=== PATIENT | female | born 1955 | race Caucasian/White ===

== ENCOUNTER 2023-03-16 15:07 | Emergency (ER) | payer OTHER, SELFPAY ==
[2023-03-16] VITALS (9 sets, daily range): BP systolic 125–163; BP diastolic 72–107; PULSE 66–79; RESP 18; TEMP 36.8; O2SAT 91–100; BMI 57.4
[2023-03-16 15:34] LABS: Add Manual Diff / Slide Review NO; Basophils Absolute Auto 0 /uL (0-100); Basophils Percent Auto 0.5 % (0-2); Eosinophils Absolute Auto 100 /uL (0-450); Eosinophils Percent Auto 1.1 % (2-4); Hematocrit 40.1 % (36-46); Hemoglobin 13.4 g/dL (12.0-16.0); Lymphocytes Absolute Auto 1200 /uL (1100-4500); Lymphocytes Percent Auto 21.5 % (25-40); Mean Corpuscular HGB Conc 33.4 % (30-36); Mean Corpuscular Hemoglobin 29.2 PG (26-34); Mean Corpuscular Volume 87.3 fL (80-100); Monocytes Absolute Auto 500 /uL (0-900); Neutrophils Absolute Auto 4000 /uL (1500-7000); Neutrophils Percent Auto 68.9 % (50-75); Platelet Count 293 X10^3/uL (150-400); Red Cell Distribution Width 13.1 % (11.6-14.8); White Blood Cell Count 5.7 X10^3/uL (4.5-11.0)
--- NOTE | 2023-03-16 15:35 | DI.CT.S_ITS ---
PROCEDURE: CT ABDOMEN PELVIS W CON INDICATIONS: Generalized abdominal pain TECHNIQUE: After the administration of intravenous contrast, axial sections acquired from the lung bases to the pubic symphysis. Coronal and sagittal reformats were performed. For radiation dose reduction, the following was used: automated exposure control, adjustment of mA and/or kV according to patient size. COMPARISON: None. FINDINGS: Lower thorax: The lung bases are clear. Heart size normal. No hiatal hernia. Liver: Normal in size and attenuation. No contour deformity present. 1.1 cm right hepatic cyst Biliary system: No calcified cholelithiasis or pericholecystic inflammation. No intra or extrahepatic bile duct dilatation. Pancreas: Unremarkable without mass or inflammation evident. Spleen: Normal in size and density. Adrenals: Normal morphology and density. Reproductive system: Unremarkable as visualized. Urinary system: Normal renal size and attenuation. 2.0 cm left renal cyst simple. No renal calculi, hydronephrosis, or solid mass present. Urinary bladder unremarkable. Gastrointestinal system: The bowel is unremarkable without evidence of bowel obstruction or inflammation. The stomach appears unremarkable. Multiple diverticula arise from the sigmoid colon without evidence of diverticulitis. Moderate fecal debris in the right and transverse colon Appendix: Normal appendix identified. No evidence of appendicitis. Peritoneal spaces: No mesenteric or retroperitoneal adenopathy. No free air. No free fluid. Vasculature: The IVC, aorta and iliac vasculature are unremarkable. Abdominal wall: Abdominal wall intact without evidence of ventral or inguinal hernias. Musculoskeletal: Normal bone mineralization. Degenerative disc disease and arthropathy noted in lower lumbar spine. Moderate central stenosis L3-4 and L4-5. No acute fractures. Left hip orthopedic pins IMPRESSION: 1. Moderate fecal debris in the right and transverse colon. No obstruction. Diverticulosis without diverticulitis. 2. Additional chronic findings detailed above Approved by: Jose Goddard M.D. on 03/16/2023 at 15:29
[2023-03-16 15:36] LABS: Urine Volume 10mL (spun)
--- NOTE | 2023-03-16 15:36 | ED_ITS ---
HPI - Abdominal Pain General Chief Complaint: Abdominal Pain Stated Complaint: ABD pain Time Seen by Provider: 03/16/23 15:17 Source: patient Mode of arrival: Ambulatory History of Present Illness HPI narrative: 67 year old female presents with generalized abdominal pain, particularly in the right upper and left lower quadrants of her abdomen. Ate a rich meal last night and symptoms started shortly afterwards. Episode of nausea and emesis just prior to arrival. Patient states that she has had numerous episodes of this in the past, she had a similar episode 4 years ago where she was evaluated in the ER and discharged with antispasmodics without definitive diagnosis. She states that usually these episodes resolve after a couple of hours, but this is lasted since yesterday which prompted her arrival to the emergency department. She has an appointment with GI in 2 weeks for a routine screening endoscopy and colonoscopy Related Data Previous Rx's Medication Instructions Recorded dicyclomine 20 mg tablet 20 mg PO TID #30 tabs 03/16/23 sucralfate 1 gram tablet (Carafate) 1 g PO QACHS #30 tabs 03/16/23 Allergies Allergy/AdvReac Type Severity Reaction Status Date / Time No Known Drug Allergies Allergy Verified 03/16/23 15:21 Review of Systems Review of Systems Narrative: Negative except as noted above Patient History Social History Smoking Status: Never smoker Smoking Status: Never smoker alcohol intake frequency: 0-2 drinks per day Substance Use Type: does not use Exam Initial Vital Signs Initial Vital Signs: Vital Signs Temperature 98.2 F 03/16/23 15:24 Pulse Rate 73 03/16/23 15:24 Respiratory Rate 18 03/16/23 15:24 Blood Pressure 141/89 H 03/16/23 15:24 Pulse Oximetry 100 03/16/23 15:24 Oxygen Delivery Method Room Air 03/16/23 15:24 Const: Awake, alert, no acute distress, nontoxic appearing Cardiac: regular rate, regular rhythm RESP: unlabored, clear bilaterally, no wheezing GI: Atraumatic, soft, generalized tenderness to deep palpation without rebound or guarding MSK: Atraumatic, full range of motion, pulses equal Skin: Warm, Dry, intact, no rashes Neuro: AO x3, CN II-XII grossly intact, moves all extremities Psych: affect normal, mood normal, not suicidal, not homicidal Course Orders Ordered: Discontinued Medications Sodium Chloride (Normal Saline 0.9%) 1,000 mls @ 1,000 mls/hr IV BOLUS ONE Stop: 03/16/23 16:36 Last Infusion: 03/16/23 16:49 Dose: Infused Documented By: Admin: 03/16/23 15:46 Dose: 1,000 mls/hr Documented By: CAMILLA Morphine Sulfate (Morphine 4 Mg/Ml Inj) 4 mg IV NOW ONE Stop: 03/16/23 15:38 Last Admin: 03/16/23 15:47 Dose: 4 mg Documented By: CAMILLA Ondansetron HCl (Ondansetron 4 Mg/2 Ml Inj) 4 mg IV NOW ONE Stop: 03/16/23 15:38 Last Admin: 03/16/23 15:47 Dose: 4 mg Documented By: CAMILLA Vital Signs Vital signs: Vital Signs - 8 hr 03/16/23 15:24 03/16/23 15:25 03/16/23 15:30 Temperature 98.2 F Pulse Rate 73 73 79 Respiratory Rate 18 Blood Pressure 141/89 H Pulse Oximetry 100 100 100 Oxygen Delivery Method Room Air 03/16/23 15:31 03/16/23 15:31 03/16/23 16:00 Temperature Pulse Rate 74 Respiratory Rate Blood Pressure 125/107 H 163/76 H Pulse Oximetry 100 Oxygen Delivery Method 03/16/23 16:00 03/16/23 16:35 03/16/23 16:37 Temperature Pulse Rate 71 66 71 Respiratory Rate Blood Pressure Pulse Oximetry 100 91 100 Oxygen Delivery Method 03/16/23 16:37 Temperature Pulse Rate Respiratory Rate Blood Pressure 156/72 H Pulse Oximetry Oxygen Delivery Method MDM - Abdominal Pain Differential Diagnosis Differential diagnosis: Likely abdominal pain, acute appendicitis and calculus of kidney Lab Data 03/16/23 15:25 03/16/23 15:25 Labs: Lab Results 03/16/23 Range/Units 15:25 WBC 5.7 (4.5-11.0) X10^3/uL RBC 4.60 (4.0-5.2) X10^6/uL Hgb 13.4 (12.0-16.0) g/dL Hct 40.1 (36-46) % MCV 87.3 (80-100) fL MCH 29.2 (26-34) PG MCHC 33.4 (30-36) % RDW 13.1 (11.6-14.8) % Plt Count 293 (150-400) X10^3/uL Neut % (Auto) 68.9 (50-75) % Lymph % (Auto) 21.5 L (25-40) % [place] % (Auto) 8.0 (3-14) % Eos % (Auto) 1.1 L (2-4) % Baso % (Auto) 0.5 (0-2) % Neut # (Auto) 4000 (3178-5332) /uL Lymph # (Auto) 1200 (3630-8008) /uL [place] # (Auto) 500 (0-900) /uL Eos # (Auto) 100 (0-450) /uL Baso # (Auto) 0 (0-100) /uL PT 10.5 (9.4-12.5) SECONDS INR 0.9 (0.9-1.3) Sodium 129 L (137-145) mmol/L Potassium 3.7 (3.4-5.1) mmol/L Chloride 98 (98-107) mmol/L Carbon Dioxide 23 (22-32) mmol/L BUN 11 (7-17) mg/dL Creatinine 0.61 (0.52-1.04) mg/dL Estimated GFR > 60 (>60) mL/min BUN/Creatinine Ratio 18.0 (6-22) Glucose 115 H (80-110) mg/dL Calcium 9.3 (8.4-10.2) mg/dL Total Bilirubin 0.7 (0.2-1.3) mg/dL AST 41 H (14-36) IU/L ALT 27 (<35) IU/L Alkaline Phosphatase 71 (38-126) U/L Total Creatine Kinase 183 H (30-135) U/L Troponin I < 0.012 (0.01-0.034) ng/mL NT-Pro-B Natriuret Pep 144 H (<125) pg/mL Total Protein 7.2 (6.3-8.2) g/dL Albumin 4.3 (3.5-5.0) g/dL Globulin 2.9 (1.7-4.1) g/dL Albumin/Globulin Ratio 1.5 (1.0-2.8) Lipase 94 (23-300) U/L Urine Color Yellow Urine Appearance Clear Urine pH 6.5 (4.5-8.0) Ur Specific [place] 1.015 (1.000-1.035) Urine Protein Negative (Negative) Urine Glucose (UA) Negative (Negative) g/dL Urine Ketones 1+ H (NEGATIVE) Urine Occult Blood Negative (Negative) Urine Nitrate Negative (Negative) Urine Bilirubin Negative (NEGATIVE) Urine Urobilinogen 0.2 (0.2) E.U./dL Ur Leukocyte Esterase 1+ H (NEGATIVE) Urine RBC 0-1/hpf (0-5/HPF) Urine WBC 1-5/hpf (0-5/HPF) Ur Squamous Epith Cells 0-1 /hpf (0-5/HPF) Urine Bacteria Few (2-10) H (None) Urine Mucus 1+ H (Negative) Ur Culture Indicated? Specimen cultured Vol Urine Centrifuged 10ml (spun) Ethyl Alcohol < 10 ( - 10) mg/dL MDM Narrative Medical decision making narrative: Well-appearing patient with the above complaint. Abdomen is soft but she does have generalized tenderness to deep palpation in all quadrants, particularly the right upper and left lower quadrants. Vital signs stable. We will order labs, pain medications, nausea medications, and IV fluids. Laboratory work is reviewed, unremarkable. No evidence of infection, liver enzymes are normal, urine is without signs of infection. CT shows chronic findings but no acute disease. Patient reassessed, resting comfortably, pain controlled. Patient informed of all lab and imaging findings. We will trial patient on Carafate and antispasmodics. Patient already has an appointment scheduled in 2 weeks with her GI doctor and we will discuss her intermittent abdominal pains with them at that time Discharge Plan Departure Patient Disposition: Home Clinical Impression: Abdominal pain Instructions: DI for Abdominal Pain-Adult Prescriptions: New dicyclomine 20 mg tablet 20 mg PO TID Qty: 30 0RF sucralfate [Carafate] 1 gram tablet 1 g PO QACHS Qty: 30 0RF Stand Alone Forms: Patient Portal/API
[2023-03-16 15:38] LABS: Appearance Urine UA CLEAR; Bilirubin Urine UA NEGATIVE (NEGATIVE); Color Urine UA YELLOW; Glucose Urine UA NEGATIVE (Negative); Ketones Urine UA 1+ (NEGATIVE); Leukocyte Esterase Urine UA 1+ (NEGATIVE); Nitrite Urine UA NEGATIVE (Negative); Occult Blood Urine UA NEGATIVE (Negative); Protein Urine UA NEGATIVE (Negative); Specific Gravity Urine UA 1.015 (1.000-1.035); Urobilinogen Urine UA 0.2 E.U./dL (0.2)
[2023-03-16 15:40] LABS: pH Urine UA 6.5 (4.5-8.0)
[2023-03-16] MEDS: SODIUM CHLORIDE 0.9% 1,000 ML 1000 ML IV (15:46)
[2023-03-16] MEDS: MORPHINE 4 MG/ML INJ IV (15:47)
[2023-03-16] MEDS: ONDANSETRON 4 MG/2 ML INJ IV (15:47)
[2023-03-16 15:55] LABS: Bacteria Urine Few (2-10); Culture Indicated Urine Specimen Cultured; Mucus Urine 1+ (Negative); RBC Urine 0-1/HPF (0-5/HPF); Squamous Epithelial Cell Urine 0-1 /HPF (0-5/HPF); WBC Urine 1-5/HPF (0-5/HPF)
[2023-03-16 16:00] LABS: Alanine Aminotransferase 27 IU/L (<35); Albumin 4.3 g/dL (3.5-5.0); Albumin Globulin Ratio 1.5 (1.0-2.8); Alkaline Phosphatase 71 U/L (38-126); Aspartate Aminotransferase 41 IU/L (14-36); Bilirubin Total 0.7 mg/dL (0.2-1.3); Blood Urea Nitrogen 11 mg/dL (7-17); Calcium 9.3 mg/dL (8.4-10.2); Carbon Dioxide 23 mmol/L (22-32); Chloride 98 mmol/L (98-107); Creatine Kinase 183 U/L (30-135); Estimated Glomerular Filt Rate > 60 mL/min (>60); Ethanol (ETOH) < 10 mg/dL; Globulin 2.9 g/dL (1.7-4.1); Glucose 115 mg/dL (80-110); HEMOLYSIS < 15 (0-50); Lipase 94 U/L (23-300); Potassium 3.7 mmol/L (3.4-5.1); Sodium 129 mmol/L (137-145); Total Protein 7.2 g/dL (6.3-8.2)
[2023-03-16 16:03] LABS: INR 0.9 (0.9-1.3); Prothrombin Time 10.5 SECONDS (9.4-12.5)
[2023-03-16 16:11] LABS: NT-proBNP (BNP-Adult 18+) 144 pg/mL (<125); Troponin I < 0.012 ng/mL (0.01-0.034)
--- NOTE | 2023-03-16 16:44 | PC.NURSE ---
pt has returned from CT and states that her pain is down to a 5/10 but she is still feeling spasms in her lower abd. 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 Pt feels like she has golfballs in her vagina because of said pressure. Pt a&ox4.
== END 2023-03-16 17:33 | disposition home or self-care (01) ==
PROVIDERS: Emergency Provider Emergency Medicine
DX: R10.84 Generalized abdominal pain (principal); R11.2 Nausea with vomiting, unspecified
CPT/HCPCS: 36415; 74177; 80053; 80320; 81001; 82550; 83690; 83880; 84484; 85025; 85610; 87086; 96361; 96374; 96375; 99284; J2270; J2405; Q9967